=== PATIENT | female | born 1960 | race Caucasian/White ===

== ENCOUNTER 2020-09-20 12:01 | Outpatient (REF) | payer MEDICARE, MEDICAID, SELFPAY ==
[2020-09-20 12:39] LABS: Hematocrit 41.7 % (37-47); Hemoglobin 13.3 g/dl (12.0-16.0); Mean Corpuscular HGB Conc 31.9 g/dl (31.0-35.0); Mean Corpuscular Hemoglobin 31.2 pg (27.0-33.0); Mean Corpuscular Volume 97.9 fL (80-98); Mean Platelet Volume 10.2 fL (9.4-12.3); Platelet Count 239 X10*3/uL (160-400); Red Blood Count 4.26 X10*6/uL (4.20-5.50); Red Cell Distribution Width 13.2 % (11.0-16.0); White Blood Count 5.4 X10*3/uL (4.8-10.8)
[2020-09-20 13:27] LABS: Alanine Aminotransferase 27 U/L (0-31); Albumin Level 4.1 g/dL (3.5-5.0); Alkaline Phosphatase 128 U/L (39-117); Anion Gap 12 (12-20); Aspartate Amino Transferase 21 U/L (5-31); Bilirubin Total 0.3 mg/dL (0.0-1.0); Blood Urea Nitrogen 14 mg/dL (9-16); Calcium 9.2 mg/dL (8.4-10.2); Carbon Dioxide 24 mmol/L (22-29); Chloride 109 mmol/L (96-108); Estimated Glomerular Filt Rate > 60; Glucose Random 179 mg/dL (60-115); Iron 70 mcg/dL (30-160); Percent Iron Saturation 27 % (15-50); Potassium 4.5 mmol/L (3.3-5.1); Sodium 140 mmol/L (135-145); Total Iron Binding Capacity 264 mcg/dL (228-428); Unsaturated Iron Binding 194 ug/dL
[2020-09-20 13:47] LABS: Erythrocyte Sedimentation Rate 39 MM/HR (0-20)
[2020-09-20 13:48] LABS: Ferritin 136 ng/mL (10-250); Thyroid Stimulating Hormone 0.63 uIU/mL (0.32-4.0)
== END 2020-09-20 12:02 | disposition home or self-care (01) ==
LOC: HO.MANLDS 12:01
PROVIDERS: Visit Provider Internal Medicine
DX: N63.11 Unspecified lump in the right breast, upper outer quadrant (principal)
CPT/HCPCS: 36415; 80053; 82728; 83540; 84443; 85027; 85652

== ENCOUNTER 2020-09-22 10:39 | Outpatient (REF) | payer MEDICARE, MEDICAID, SELFPAY ==
[2020-09-22 13:36] LABS: Estimated Average Glucose 126 mg/dL
== END 2020-09-22 10:40 | disposition home or self-care (01) ==
LOC: HO.MANLDS 10:39
PROVIDERS: PCP Internal Medicine; Visit Provider Internal Medicine
DX: R73.01 Impaired fasting glucose (principal)
CPT/HCPCS: 36415; 83036

== ENCOUNTER 2021-01-03 11:22 | Outpatient (REF) | payer MEDICARE, MEDICAID, SELFPAY ==
[2021-01-03 14:12] LABS: Estimated Average Glucose 128 mg/dL; Hemoglobin A1c % 6.1 %
[2021-01-03 15:02] LABS: Alanine Aminotransferase 24 U/L (0-31); Albumin Level 4.4 g/dL (3.5-5.0); Alkaline Phosphatase 122 U/L (39-117); Anion Gap 15 (12-20); Aspartate Amino Transferase 18 U/L (5-31); Bilirubin Total 0.2 mg/dL (0.0-1.0); Blood Urea Nitrogen 13 mg/dL (9-16); Calcium 9.2 mg/dL (8.4-10.2); Carbon Dioxide 22 mmol/L (22-29); Chloride 108 mmol/L (96-108); Estimated Glomerular Filt Rate > 60; Glucose Random 154 mg/dL (60-115); Potassium 4.5 mmol/L (3.3-5.1); Sodium 140 mmol/L (135-145); Total Protein 7.5 g/dL (6.5-8.0)
== END 2021-01-03 11:23 | disposition home or self-care (01) ==
LOC: HO.MANLDS 11:22
PROVIDERS: PCP Internal Medicine; Visit Provider Internal Medicine
DX: R73.01 Impaired fasting glucose (principal)
CPT/HCPCS: 36415; 80053; 83036

== ENCOUNTER 2022-01-23 14:22 | Outpatient (REF) | payer MEDICARE, MEDICAID, SELFPAY ==
[2022-01-23 17:37] LABS: MANUAL DIFF FLAG NO
[2022-01-23 17:44] LABS: Basophils Percent Auto 0.4 % (0-2); Eosinophils Absolute Auto 0.1 X10*3/uL (0.0-0.4); Eosinophils Percent Auto 0.8 % (0-4); Hematocrit 43.3 % (37.0-47.0); Hemoglobin 13.7 g/dl (12.0-16.0); Imm Gran Abs Auto 0.02 X10*3/uL (0.00-0.03); Imm Gran Pct Auto 0.3 % (0.0-0.4); Lymphocytes Absolute Auto 2.5 X10*3/uL (1.2-4.9); Mean Corpuscular HGB Conc 31.6 g/dl (31.0-35.0); Mean Corpuscular Hemoglobin 30.4 pg (27.0-33.0); Mean Corpuscular Volume 96.2 fL (80.0-98.0); Mean Platelet Volume 10.7 fL (9.4-12.3); Monocytes Absolute Auto 0.5 X10*3/uL (0.1-1.2); Monocytes Percent Auto 6.6 % (2-11); Neutrophils Absolute Auto 4.4 x10*3/uL (2.0-8.3); Neutrophils Percent Auto 58.9 % (45-73); Platelet Count 256 X10*3/uL (160-400); Red Cell Distribution Width 13.6 % (11.0-16.0); White Blood Count 7.4 X10*3/uL (4.8-10.8)
[2022-01-23 17:48] LABS: Estimated Average Glucose 134 mg/dL; Hemoglobin A1c % 6.3 %
[2022-01-23 17:53] LABS: Alanine Aminotransferase 27 U/L (0-31); Albumin Level 4.3 g/dL (3.5-5.0); Alkaline Phosphatase 105 U/L (39-117); Anion Gap 15 (12-20); Aspartate Amino Transferase 26 U/L (5-31); Bilirubin Total 0.2 mg/dL (0.0-1.0); Blood Urea Nitrogen 15 mg/dL (9-16); Calcium 9.2 mg/dL (8.4-10.2); Carbon Dioxide 24 mmol/L (22-29); Chloride 105 mmol/L (96-108); Cholesterol 192 mg/dL; Estimated Glomerular Filt Rate > 60; Glucose Random 90 mg/dL (60-115); HDL Cholesterol 50 mg/dL; LDL Cholesterol Calculated 96 mg/dl; Potassium 4.1 mmol/L (3.3-5.1); Sodium 140 mmol/L (135-145); Total Protein 7.3 g/dL (6.5-8.0); Triglycerides 230 mg/dL
[2022-01-23 18:19] LABS: Vitamin B12 1615 pg/mL (200-900)
== END 2022-01-23 14:23 | disposition home or self-care (01) ==
LOC: HO.MANLDS 14:22
PROVIDERS: Visit Provider Internal Medicine
DX: Z00.01 Encounter for general adult medical examination with abnormal findings (principal); E78.00 Pure hypercholesterolemia, unspecified; R73.01 Impaired fasting glucose
CPT/HCPCS: 36415; 80053; 80061; 82306; 82607; 83036; 84443; 85025

== ENCOUNTER 2023-08-29 08:17 | Outpatient (REF) | payer MEDICARE, MEDICAID, SELFPAY ==
[2023-08-29 13:19] LABS: MANUAL DIFF FLAG NO
[2023-08-29 13:24] LABS: Basophils Percent Auto 0.7 % (0-2); Eosinophils Absolute Auto 0.1 X10*3/uL (0.0-0.4); Eosinophils Percent Auto 2.6 % (0-4); Hematocrit 42.2 % (37.0-47.0); Hemoglobin 13.4 g/dl (12.0-16.0); Imm Gran Abs Auto 0.02 X10*3/uL (0.00-0.03); Imm Gran Pct Auto 0.4 % (0.0-0.4); Lymphocytes Absolute Auto 1.8 X10*3/uL (1.2-4.9); Lymphocytes Percent Auto 33.7 % (20-40); Mean Corpuscular HGB Conc 31.8 g/dl (31.0-35.0); Mean Corpuscular Hemoglobin 31.2 pg (27.0-33.0); Mean Corpuscular Volume 98.4 fL (80.0-98.0); Mean Platelet Volume 10.9 fL (9.4-12.3); Monocytes Absolute Auto 0.6 X10*3/uL (0.1-1.2); Monocytes Percent Auto 10.4 % (2-11); Neutrophils Absolute Auto 2.8 x10*3/uL (2.0-8.3); Neutrophils Percent Auto 52.2 % (45-73); Platelet Count 245 X10*3/uL (160-400); Red Blood Count 4.29 X10*6/uL (4.20-5.50); Red Cell Distribution Width 13.2 % (11.0-16.0); White Blood Count 5.4 X10*3/uL (4.8-10.8)
[2023-08-29 13:45] LABS: Alanine Aminotransferase 19 U/L (0-31); Albumin Level 3.8 g/dL (3.5-5.0); Alkaline Phosphatase 86 U/L (39-117); Anion Gap 15 (12-20); Aspartate Amino Transferase 26 U/L (5-31); Bilirubin Total 0.1 mg/dL (0.0-1.0); Blood Urea Nitrogen 16 mg/dL (9-16); Calcium 9.1 mg/dL (8.4-10.2); Carbon Dioxide 22 mmol/L (22-29); Chloride 107 mmol/L (96-108); Cholesterol 174 mg/dL (<200); Estimated Glomerular Filt Rate > 60; Glucose Random 170 mg/dL (60-115); HDL Cholesterol 44 mg/dL (>40); LDL Cholesterol Calculated 77 mg/dL (<100); Sodium 140 mmol/L (135-145); Total Protein 6.8 g/dL (6.5-8.0); Triglycerides 266 mg/dL (<150)
== END 2023-08-29 08:18 | disposition home or self-care (01) ==
LOC: HO.MANLDS 08:17
PROVIDERS: Visit Provider Internal Medicine
DX: Z00.01 Encounter for general adult medical examination with abnormal findings (principal); Z13.6 Encounter for screening for cardiovascular disorders; Z12.11 Encounter for screening for malignant neoplasm of colon
CPT/HCPCS: 36415; 80053; 80061; 85025

== ENCOUNTER 2023-09-09 | Outpatient (REF) | payer MEDICARE, MEDICAID, SELFPAY ==
[2023-09-10 13:41] LABS: OBS Int Ctl Valid YES; OBS1 NEGATIVE (NEGATIVE); OBS2 NEGATIVE (NEGATIVE); OBS3 NEGATIVE (NEGATIVE)
== END 2023-09-09 00:01 | disposition home or self-care (01) ==
LOC: HO.LNP
PROVIDERS: Visit Provider Internal Medicine
DX: Z12.11 Encounter for screening for malignant neoplasm of colon (principal)
CPT/HCPCS: 82270

== ENCOUNTER 2024-06-11 11:36 | Outpatient (REF) | payer MEDICARE, MEDICAID, SELFPAY ==
[2024-06-11 13:51] LABS: Estimated Average Glucose 126 mg/dL; Hemoglobin A1C 147.3388 umol/L; Total Hemoglobin (HGBA1C) 3489.7383 umol/L
--- OUTSIDE RECORDS SUMMARY | 2024-06-11 14:06 | XMS_ITS | Continuity of Care Document ---
Author Organization [place] - [facility], [facility] Address [address] [place] [address] Assessment Encounter Date Assessment Date Assessment LastModified by Organization Details LastModified Time 06/11/2024 06/11/2024 [id number] [place] [id number] (HEEL [employer]) MDM HIGH MUST MEET 2 OUT OF 3 ELEMENTS: PROBLEMS, DATA OR RISK ELEMENT 1: PROBLEMS 1 OR MORE CHRONIC ILLNESS W/SEVERE EXACERBATION, PROGRESSION MAY REQUIRE HOSPITAL LEVEL CARE OR 1 ACUTE OR CHRONIC ILLNESS OR INJURY THAT POSES A THREAT TO LIFE OR BODILY FUNCTION ELEMENT 2: DATA: MUST MEET 2 OF 3 CATEGORIES CATEGORY 1 REVIEW OF PRIOR EXTERNAL NOTES REVIEW OF THE RESULTS ORDERING OF EACH TEST ASSESSMENT REQUIRING INDEPENDENT HISTORIAN(S) CATEGORY 2: INDEPENDENT INTERPRETATION OF TESTS BY ANOTHER PROVIDER/SPECIALI ST CATEGORY 3: DISCUSSION OF MGT OR TEST INTERPRETATION W/EXTERNAL PHYSICIAN/SPECIAL IST ELEMENT 3: RISK HIGH RISK OF MORBIDITY FROM ADDITIONAL DIAGNOSTIC TESTING OR TREATMENT PROVIDER MUST THOROUGHLY DOCUMENT EACH ELEMENT THAT IS COVERED The patient presented to their appointment today for multiple concerns requiring moderate to high-level decision making and took over 40-45 minutes for an adequate and appropriate history, exam, assessment and treatment plan. This appointment was done with an established patient. Not available 06/11/2024 11:16:07 Plan of Treatment Reminders Order Date Submit Date Provider Last Modified By Organization Details Last Modified Time Details Appointments FOLLOW UP 15 2024 10:45A M DR KEITH Not available Not available Not available FOLLOW UP 2024 11:15A M DR KETIH Not available Not available Not available Lab HbA1c (hemoglob in A1c), blood 2024 03 025 [facility], [address] [place] [address], [place], [address], 06/11/2024 11:30:28 Referral None recorded. Procedures None recorded. Surgeries None recorded. Imaging None recorded. Medication Orders Mounjaro 2.5 mg/0.5 mL subcutane ous pen injector 2024 025 [id number], [address], [place], [phone], 06/11/2024 11:21:41 Patient TargetsNo targets recorded. Patient Instructions Encounter Date Encounter Id Patient Instructions Last Modified By Organization Details Last Modified Time 06/11/2024 [id number] pulse oximetry* Not available 06/11/2024 11:21:30 chronic obstructive pulmonary disease (COPD): care instructions Not available 06/11/2024 11:21:30 learning about copd and how to prevent lung infections Not available 06/11/2024 11:21:30 Rheumatoid Arthritis (RA): Care Instructions Not available 06/11/2024 11:21:30 Reason for Referral None Reported. Results Created Date Observation Date Name Description Value Unit Range Abnormal Flag Note LastModifiedBy Organization Detail LastModifiedTime 06/12/1906/11/2024 pulse oxime try* Result 95 Not Available [facility] [address], [place], [address], 06/11/2024 08:22:51 Result Notes None recorded. Problems Name Problem SNOMED Code Status Onset Date Resolution Date Notes Provider Name and Address Organization Details Recorded Time Pulmonar y emphysem a 22657374 Active 2020 Genesis galeas [facility] 5 08:22:25 COVID-19 559299435 Active 2021 Genesis galeas [facility] 5 08:22:39 Degenera tion of lumbar interver tebral disc 59490674 Active 2021 Genesis galeas [facility] 5 08:22:25 Impetigo 46980970 Active 2021 Genesis galeas [facility] 5 08:22:25 Seborrhe ic dermatit is of scalp 177688525 Active 2021 Genesis Mcclelland null, [facility] 5 08:22:39 Anxiety 14022050 Active 2022 Genesis Mcclelland null, [facility] 5 08:22:25 Right flank pain 378105522 Active 2022 Genesis Mcclelland null, [facility] 5 08:22:39 Dyspnea 309832017 Active 2022 Genesis Mcclelland null, [facility] 5 08:22:25 Thoracic back pain 727354090 Active 2022 Genesis Mcclelland null, [facility] 5 08:22:25 Degenera tion of thoracic interver tebral disc 12547087 Active 2022 Genesis Mcclelland null, [facility] 5 08:22:25 Insomnia 218975545 Active 2022 Genesis Mcclelland null, [facility] 5 08:22:25 Acute exacerba tion of chronic obstruct anjelica pulmonar y disease 162954395 Active 2022 Genesis Mcclelland null, [facility] 5 08:22:25 Asthma 254903051 Active 2022 Genesis Mcclelland null, [facility] 5 08:22:25 Hemorrho ids 53835248 Active 2022 Genesis Mcclelland null, [facility] 5 08:22:25 Emphysem atous bronchit is 470743393 Active 2022 Genesis Mcclelland null, [facility] 5 08:22:25 Depressi ve disorder 92841044 Active 2022 Genesis Mcclelland null, [facility] 5 08:22:25 Dyspnea on exertion 36381229 Active 2023 Genesis Mcclelland null, [facility] 5 08:22:25 Fibrosis of lung 14521407 Active 2023 Genesis Drew null, [facility] 5 08:22:25 Nail changes 193851371 Active 2023 Genesisalma delia Mcclelland null, [facility] 5 08:22:39 Hashimot o thyroidi tis 75319733 Active 2023 Genesisalma delia Mcclelland null, [facility] 5 08:22:25 Chronic obstruct anjelica pulmonar y disease 26005182 Active 2023 Genesisalma delia Mcclelland null, [facility] 5 08:22:25 Pneumoni a 426853310 Active 2023 Genesisalma delia Mcclelland null, [facility] 5 08:22:39 Ground glass opacity Active 2023 Genesisalma delia Mcclelland null, [facility] 5 08:22:39 Pain of right knee joint 71019334712 4100 Active 2023 Genesisalma delia Mcclelland null, [facility] 5 08:22:39 Sleep apnea 94301452 Active 2023 Genesisalma delia Mcclelland null, [facility] 5 08:22:25 Bilatera l hip joint pain 83468551717 078030 Active 2023 Genesis Mcclelland null, [facility] 5 08:22:25 Osteoart hritis of hip 020078635 Active 2023 Genesisalma delia Mcclelland null, [facility] 5 08:22:25 Weakness of right lower limb Active 2023 Genesisalma delia Mcclelland null, [facility] 5 08:22:25 Type 2 diabetes mellitus 24667947 Active 2023 Jj Keith, DO [address] [place] [address], [address], [facility] 4 22:07:10 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 [facility] 5 08:22:25 Chronic hypovent ilation 36897799 Active 2024 [facility] 5 08:22:25 Hypercho lesterol emia 87601000 Active 2017 Genesis galeas [facility] 5 08:22:25 Degenera tion of interver tebral disc 78774109 Active 2017 [facility] 5 08:22:26 Cramp in lower limb 012748374 Active 2017 [facility] 5 08:22:39 Rheumato id arthriti s 39997475 Active 2017 [facility] 5 08:22:25 Viral hepatiti s C 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 n [facility] 5 08:22:25 Chronic antral gastriti s 29295785 Active 2017 [facility] 5 08:22:26 Fibromya lgia 469732360 Active 2017 [facility] 5 08:22:25 Osteoart hritis 908466416 Active 2017 [facility] 5 08:22:25 Chronic constipa tion 942782756 Active 2017 [facility] 5 08:22:25 Chiari malforma tion 714478488 Active 2017 Genesis galeas [facility] 5 08:22:25 Costal chondrit is 84939654 Active 2017 Genesis galeas [facility] 5 08:22:39 Occipita l headache 392361 Active 2017 Not Available [facility] 12:47:48 Notes:Some problems listed i n Documents: #[id number], #[id number], #[id number], #[id number], #[id number] could not be added to this patient's chart. Please review these documents and add these problems to the patient's chart manually as needed. Problem Notes None recorded. Procedures Surgical History Date Name Laterality Status Provider Name and Address Organization Details Recorded Time 024 Corticosteroid Injection completed Jah Aquino [facility] 11/09/2023 13:46:54 Corticosteroid Injection completed Jj Keith, DO [address] [place] [address], [place], [address], [facility] 10/29/2023 15:29:39 Imaging Results None recorded. Procedure Notes None recorded. Medical Equipment None Reported. Allergies Allergen ID Allergen Name Allergen Category Reaction Reaction Severity Criticality Documentation Date Start Date Code Code System Note Provider Name and Address Organization Details Recorded Time 1900 Indocin medicatio n Not available Not available Not available 10/23/2017 08129 5 RxNorm Maria T Byrnes [facility] 8 09:22:03 1901 Soma medicatio n Not available Not available Not available 10/23/2017 00113 2 RxNorm Maria T galeas [facility] 8 09:22:07 1902 doxycycli ne Not available Not available Not available Not available 10/23/2017 3640 RxNorm Maria T galeas [facility] 8 09:22:11 1903 pregabali n medicatio n Not available Not available Not available 10/23/2017 33264 2 RxNorm Maria T galeas [facility] 8 09:22:20 Medications Name Sig Start Date Stop Date Status Note LastModified by Organization Details LastModified Time celecoxib 200 mg capsule TAKE 1 CAPSULE BY MOUTH TWICE DAILY DIRECTED FOR OSTEOARTH RITIS active Not Available Not Available No t Available cyclobenzap rine 10 mg tablet TAKE 1 TABLET BY MOUTH THREE TIMES DAILY EVERY 8 HOURS active Not Available Not Available No t Available amoxicillin 500 mg capsule TAKE 4 CAPSULES BY MOUTH BEFORE INJECTION FOR 1 HOUR 06/11 completed Not Available Not Available Not Available fentanyl 50 mcg/hr transdermal patch APPLY 1 PATCH TOPICALLY TO THE SKIN EVERY 72 HOURS 2024 active Not Available Not Available Not Avai lable pilocarpine 5 mg tablet TAKE 2 TABLETS BY MOUTH EVERY MORNING AND 1 TABLET IN THE AFTERNOON AND 1 IN THE EVENING active Not Available Not Available No t Available prednisone 10 mg tablet TAKE 4 TABLETS BY MOUTH DAILY FOR 2 DAYS, 3 TABLETS DAILY FOR 2 DAYS, 2 TABLETS DAILY FOR 2 DAYS, THEN 1 TABLET DAILY FOR 2 DAYS 08/07 completed Not Available Not Available Not Available clindamycin HCl 300 mg capsule TAKE 1 CAPSULE BY MOUTH EVERY 6 HOURS 11/22 completed Not Available Not Available Not Available amitriptyli ne 150 mg tablet TAKE 1 TABLET BY MOUTH EVERY NIGHT AT BEDTIME active Not Available Not Available No t Available azithromyci n 250 mg tablet TAKE 2 TABLETS (500 MG) BY ORAL ROUTE ONCE DAILY FOR 1 DAY THEN 1 TABLET (250 MG) BY ORAL ROUTE ONCE DAILY FOR 4 DAYS 03/21 completed Not Available Not Available Not Available amitriptyli ne 75 mg tablet 02/12 completed Not Available Not Available Not Available sumatriptan 100 mg tablet Take 1 tablet by oral route as needed for 30 days. active Not Available Not Available No t Available prednisone 5 mg tablet 09/04 completed Not Available Not Available Not Available glipizide ER 5 mg tablet, extended release 24 hr TAKE 1 TABLET BY MOUTH EVERY DAY active Not Available Not Available No t Available Accu-Chek Softclix Lancets USE TO TEST BLOOD GLUCOSE ONCE DAILY active Not Available Not Available No t Available sulfamethox azole 800 mg-trimetho prim 160 mg tablet TAKE 1 TABLET BY MOUTH EVERY 12 HOURS FOR 7 DAYS 05/26 completed Not Available Not Available Not Available peg-electro lyte solution 420 gram oral solution TAKE DIRECTED BY MD OFFICE FOR PROCEDURE PREP 08/07 completed Not Available Not Available Not Available tramadol 50 mg tablet TAKE 1 TABLET BY MOUTH EVERY 6 HOURS NEEDED FOR BREAKTHRO UGH PAIN active Not Available Not Available No t Available acetaminoph en 500 mg tablet TAKE 1 TABLET BY MOUTH EVERY 6 HOURS NEEDED active Not Available Not Available No t Available amoxicillin 500 mg tablet active Not Available Not Available Not Available simvastatin 40 mg tablet TAKE 1 TABLET BY MOUTH ONCE DAILY 07/31 completed Not Available Not Available Not Available amiloride 5 mg tablet TAKE 1 TABLET BY MOUTH EVERY DAY DIRECTED active Not Available Not Available No t Available amitriptyli ne 25 mg tablet 02/12 completed Not Available Not Available Not Available lorazepam 0.5 mg tablet TAKE 1 TABLET BY MOUTH EVERY 8 HOURS NEEDED active Not Available Not Available No t Available fentanyl 100 mcg/hr transdermal patch APPLY 1 PATCH TOPICALLY TO THE SKIN EVERY 72 HOURS active Not Available Not Available No t Available lorazepam 2 mg tablet TAKE 1 TABLET BY MOUTH DIRECTED 1.5 HOURS PRIOR TO INJECTION 06/11 completed Not Available Not Available Not Available baclofen 10 mg tablet TAKE 1 TABLET BY MOUTH THREE TIMES DAILY NEEDED 2020 active Not Available Not Available Not Avai lable simvastatin 20 mg tablet TAKE 1 TABLET BY MOUTH EVERY DAY active Not Available Not Available No t Available oseltamivir 75 mg capsule Take 1 capsule twice a day by oral route for 5 days. 06/11 completed Not Available Not Available Not Available levothyroxi ne 150 mcg tablet 07/08 completed Not Available Not Available Not Available gabapentin 300 mg capsule TAKE ONE CAPSULE BY MOUTH EVERY NIGHT AT BEDTIME active Not Available Not Available No t Available omeprazole 20 mg capsule,del ayed release TAKE 1 CAPSULE BY MOUTH TWICE A DAY active Not Available Not Available No t Available bisacodyl 5 mg tablet,curt yed release TAKE 4 TABLETS BY MOUTH EVERY DAY FOR 1 DAY 06/11 completed Not Available Not Available Not Available gabapentin 100 mg capsule TAKE 1 CAPSULE BY MOUTH DAILY IN THE MORNING AND IN THE AFTERNOON active Not Available Not Available No t Available lorazepam 1 mg tablet TAKE 1/2 TABLET BY MOUTH THREE TIMES DAILY NEEDED 05/26 completed Not Available Not Available Not Available levofloxaci n 500 mg tablet TAKE 1 TABLET BY MOUTH EVERY 24 HOURS active Not Available Not Available No t Available zolpidem 10 mg tablet TAKE 1 TABLET BY MOUTH EVERY DAY FOR 7 DAYS NEEDED active Not Available Not Available No t Available methylpredn isolone 4 mg tablets in a dose pack FOLLOW PACKAGE DIRECTION S 08/07 completed Not Available Not Available Not Available albuterol sulfate HFA 90 mcg/actuati on aerosol inhaler INHALE 2 PUFFS BY MOUTH EVERY 4 HOURS active Not Available Not Available No t Available clobetasol 0.05 % scalp solution APPLY TOPICALLY TO THE SCALP TWICE DAILY IN THE MORNING AND IN THE EVENING active Not Available Not Available No t Available topiramate 100 mg tablet TAKE 1 TABLET BY MOUTH TWICE DAILY active Not Available Not Available No t Available betamethaso ne dipropionat e 0.05 % lotion APPLY FEW DROPS TOPICALLY TO THE AFFECTED AREA EVERY MORNING AND EVERY EVENING. RUB IN GENTLY AND COMPLETEL Y active Not Available Not Available No t Available amitriptyli ne 100 mg tablet TAKE 1 TABLET BY MOUTH ONCE DAILY 07/08 completed Not Available Not Available Not Available rosuvastati n 5 mg tablet 11/09 completed Not Available Not Available Not Available Alcohol Prep Pads USE TO CHECK BLOOD SUGAR LEVEL ONCE DAILY active Not Available Not Available No t Available duloxetine 30 mg capsule,del ayed release TAKE 1 CAPSULE BY MOUTH EVERY DAY active Not Available Not Available No t Available biotin 1 mg tablet Take 1 tablet every day by oral route. active Not Available Not Available No t Available Boostrix Tdap 2.5 Lf unit-8 mcg-5 Lf/0.5 mL intramuscul ar syringe 02/08 completed Not Available Not Available Not Available melatonin active Not Available Not Francie ilable Not Available Vitamin C 500mg daily active Not Available Not Available No t Available multivitami n active Not Available Not Available Not Available Calcium 600 + D(3) once a day active Not Available Not Available No t Available Symbicort 80 mcg-4.5 mcg/actuati on HFA aerosol inhaler INHALE 2 PUFFS BY MOUTH TWICE A DAY 09/20 completed Not Available Not Available Not Available diclofenac 1 % topical gel APPLY 2 GRAMS TOPICALLY TO THE AFFECTED AREA FOUR TIMES DAILY active Not Available Not Available No t Available Chantix Continuing Month Box 1 mg tablet take 1 tablet by mouth twice a day 07/08 completed Not Available Not Available Not Available Chantix Starting Month Box 0.5 mg (11)-1 mg (42) tablets in dose pack take as directed ON PACKAGE active Not Available Not Available No t Available Anoro Ellipta 62.5 mcg-25 mcg/actuati on powder for inhalation INHALE 1 PUFF BY MOUTH EVERY DAY active Not Available Not Available No t Available OxyContin 15 mg tablet,carol h resistant,e xtended release TAKE 1 TABLET (15 MG TOTAL) BY MOUTH EVERY 12 (TWELVE) HOURS. 07/08 completed Not Available Not Available Not Available OxyContin 30 mg tablet,carol h resistant,e xtended release Take 1 tablet twice a day by oral route for 28 days. 05/07 completed Not Available Not Available Not Available Narcan 4 mg/actuatio n nasal spray CALL 911. SPR CONTENTS OF ONE SPRAYER (0.1ML) INTO ONE NOSTRIL. REPEAT IN 2-3 MIN IF SYMPTOMS OF OPIOID EMERGENCY PERSIST, ALTERNATE NOSTRIL active Not Available Not Available No t Available Accu-Chek Guide test strips USE TO CHECK BLOOD SUGAR LEVEL ONCE DAILY. active Not Available Not Available No t Available Accu-Chek Guide Glucose Meter USE TO CHECK BLOOD GLUCOSE ONCE DAILY active Not Available Not Available No t Available Trelegy Ellipta 100 mcg-62.5 mcg-25 mcg powder for inhalation INHALE 1 PUFF BY MOUTH EVERY DAY DIRECTED 2023 active Not Available Not Available Not Avai lable Shingrix (PF) 50 mcg/0.5 mL intramuscul ar suspension, kit 02/12 completed Not Available Not Available Not Available Mounjaro 2.5 mg/0.5 mL subcutaneou s pen injector Inject 0.5 mL every week by subcutane ous route for 30 days. 2024 active Not Available Not Available Not Avai lable Vitals Date Recorded Body height Body mass index (BMI) Body weight Heart rate Oxygen saturation Oxygen saturation in Arterial blood by Pulse oximetry Systolic blood pressure Diastolic blood pressure Provider Name and Address Organization Details Last Updated DateTime 5 172.72 cm 41 kg/m2 979034. 86 g 88 /min 95 % 95 % 122 mm[Hg] 78 mm[Hg] [facility] 5 10:55:33 Social History Question Answer Notes LastModified by Organizat ion Details LastModified Time Tobacco Smoking Status Former Smoker Not Available [facility] 02/10/2020 03:36:24 What Is Your Level Of Alcohol Consumption? Occasional [id number] Information not available 02/10/2020 What Is Your Level Of Caffeine Consumption? Heavy 4 Cups Coffee Per Day [id number] Information not available 02/10/2020 What Was The Date Of Your Most Recent Tobacco Screening? 06/11/2024 [email or web address] Information not available 06/11/2024 Do You Or Have You Ever Used Any Other Forms Of Tobacco Or Nicotine? No Information not available 01/23/2022 Sex: Unknown Functional Status Question Answer Note LastModified by Organization D etails LastModified Time What is your exercise level? None [id number] Information not available 02/10/2020 Mental Status None recorded. Family History Nothing Reported. Medical History No medical history recorded. Gynecological HistoryNo gynecological history recorded. Obstetrics History GPAL:G 0 P 0 0 0 0 Immunizations Vaccine Type Date Status Note Provider Nam e and Address Organization Details Recorded Time zoster, unspecified formulation 1 completed Jj Keith DO [address] [place] [address], [phone], [facility] 11/27/2020 17:46:12 Influenza, split virus, quadrivalent, preservative 1 completed Jj Keith DO [address] [place] [address], [phone], [facility] 11/27/2020 17:46:22 COVID-19, mRNA, LNP-S, PF, 30 mcg/0.3 mL dose 1 [facility] 12/22/2020 09:39:41 Tdap 1 completed Colette galeas [facility] 01/07/2021 08:20:47 zoster recombinant 1 completed Maria T galeas [facility] 01/28/2021 13:57:41 COVID-19, mRNA, LNP-S, PF, 30 mcg/0.3 mL dose 1 completed Jj Keith DO [address] [place] [address], [phone], [facility] 03/10/2021 14:32:15 Influenza, split virus, quadrivalent, preservative 8 completed Jj Keith DO [address] [place] [address], [phone], [facility] 01/12/2018 15:24:16 COVID-19, mRNA, LNP-S, PF, 30 mcg/0.3 mL dose 2 completed Kelly Hackett [facility] 08/05/2021 08:33:30 Influenza, split virus, quadrivalent, preservative 2 completed Maria T galeas [facility] 01/17/2022 08:26:21 Tdap 8 completed Not Available [facility] 05/10/2019 02:14:52 zoster live 8 completed Maria T galeas [facility] 12/18/2018 11:18:50 zoster live 8 completed Maria T galeas [facility] 12/18/2018 11:18:59 Influenza, split virus, quadrivalent, preservative 0 completed Colette galeas [facility] 01/06/2020 13:41:20 Tdap 0 [facility] 01/06/2020 13:41:32 COVID-19, mRNA, LNP-S, PF, 30 mcg/0.3 mL dose 1 completed Jj Keith DO [address] [place] [address], [phone], [facility] 07/31/2020 19:33:42 Past Encounters Encounter ID Performer Location Encounter Start Date Encounter Closed Date Diagnosis/Indication Diagnosis SNOMED-CT Code Diagnosis ICD10 Code Diagnosis Note [id number] Jj Keith DO [facility] [address] [facility] [address] 06/11/2024 10:40:55 06/11/2024 12:13:26 Asthma 748538357 J45.909 has been stable Type 2 tim betes mellitus 42828169 E11.9 new onset of dm long discussion and need for weight loss told her she needs to change the way she is eatingwe are going to get her a Glp 1 inj Central al veolar hypoventilation syndrome 27844406 G47.39 noted obesity hypovent syndrome a bedtime O2 sats drop to 70's Degenerati on of lumbar intervertebral disc 40407861 M51.369 going for caudal epidural Depression screening 171 680505 Z13.31 neg Chronic ob structive pulmonary disease 97842904 J44.9 awaiting pft final report expect status to have worsened Bilateral hip joint pain 8634966047 6188695 M25.551 noted and her wgt is the primary culprit Rheumatoid arthritis 698 83576 M06.89 followed per rheumatelena cory is asking for medication for breakthrou gh pain even though she is getting 150mcg of xpxdxaut5m will discuss this with marissa at [facility] ortho(?) Health Concerns Section Related Observation LastModified by Organization Detai ls LastModified Time None Recorded Concern Status LastModified by Organization Details LastModified Time None Recorded Payers Encounter Date Sequence Insurance Name Policy Number Policy Bruce Covered Member ID Bruce Member ID Guarantor Name 06/11/2024 2 [place] [facility] Amberly [place] [id number] Amberly [place] 06/11/2024 1 [facility] (MEDICARE REPLACEMENT/A DVANTAGE - HMO) Amberly Glasgow [id number] Amberly Glasgow Notes Date Note Type Note Provider Name a ut Address Organization Details Recorded Time 5 text/html Care Management - DiabetesReported bypatient.Prognosis:e xpected outcome: stabilize; prognosis: guarded Self Care:hemoglobin A1C goal: <7.5; hemoglobin A1C levels have been: 7-8 underwent resp eval oxim went down 92% but pt saw 90 this was after she was walking for 5 min relates is still having exertional dyspneausing the trelegy daily and always using the albuterol Jj Keith, DO [address] [facility], [place], [address], [facility] (formerly [facility] 06/11/2024 11:24:57 OBGyn Episode No OBEpisode recorded.
--- OUTSIDE RECORDS SUMMARY | 2024-06-11 14:06 | XMS_ITS | Data Portability ---
Author Organization [facility] Service Address [address] [place] [address] Assessment Encounter Date Assessment Date Assessment LastModified by Organization Details LastModified Time 10/29/2023 10/29/2023 [id number] [place] [id number] (STATION MASTER) : MDM LOW MUST MEET 2 OF 3 ELEMENTS: PROBLEMS, DATA OR RISK ELEMENT 1: PROBLEMS ADDRESSED (LOW): 2 OR MORE SELF-LIMITED OR MINOR PROBLEMS OR 1 STABLE CHRONIC ILLNESS OR 1 ACUTE UNCOMPLICATED ILLNESS OR INJURY ELEMENT 2: DATA TO BE REVISED AND ANALYZED (LOW) MUST MEET 1 OF 2 CATEGORIES: CATEGORY 1. REVIEW OF PRIOR EXTERNAL NOTES/RESULTS, ORDERING OF TEST(S) CATEGORY 2. ASSESSMENT REQUIRING INDEPENDENT HISTORIAN(S) INCLUDE WHO THE HISTORIAN IS AND RELATION TO PT AND WHY PT IS UNABLE TO GIVE COMPLETE HISTORY ELEMENT 3: RISK (LOW) RISK OF COMPLICATIONS AND/OR MORBIDITY OR MORTALITY OF PATIENT MANAGEMENT PROVIDER MUST THOROUGHLY DOCUMENT ALL OF THE ELEMENTS COVERED Not available 10/29/2023 15:30:05 11/09/2023 11/09/2023 [id number] [place] [id number] (STATION MASTER) : MDM LOW MUST MEET 2 OF 3 ELEMENTS: PROBLEMS, DATA OR RISK ELEMENT 1: PROBLEMS ADDRESSED (LOW): 2 OR MORE SELF-LIMITED OR MINOR PROBLEMS OR 1 STABLE CHRONIC ILLNESS OR 1 ACUTE UNCOMPLICATED ILLNESS OR INJURY ELEMENT 2: DATA TO BE REVISED AND ANALYZED (LOW) MUST MEET 1 OF 2 CATEGORIES: CATEGORY 1. REVIEW OF PRIOR EXTERNAL NOTES/RESULTS, ORDERING OF TEST(S) CATEGORY 2. ASSESSMENT REQUIRING INDEPENDENT HISTORIAN(S) INCLUDE WHO THE HISTORIAN IS AND RELATION TO PT AND WHY PT IS UNABLE TO GIVE COMPLETE HISTORY ELEMENT 3: RISK (LOW) RISK OF COMPLICATIONS AND/OR MORBIDITY OR MORTALITY OF PATIENT MANAGEMENT PROVIDER MUST THOROUGHLY DOCUMENT ALL OF THE ELEMENTS COVERED Not available 11/09/2023 15:52:11 03/04/2024 03/04/2024 [id number] [place] [id number] (STATION MASTER) MDM MODERATE MUST MEET 2 OUT OF 3 ELEMENTS: PROBLEMS, DATA OR RISK ELEMENT 1: PROBLEMS ADDRESSED 1 OR MORE CHRONIC ILLNESS WITH EXACERBATION OR 2 OR MORE STABLE CHRONIC ILLNESSES OR 1 UNDIAGNOSED NEW PROBLEM OR 1 ACUTE ILLNESS W/SYMPTOMS OR 1 ACUTE COMPLICATED INJURY ELEMENT 2: DATA MUST MEET 1 OF 3 CATEGORIES CATEGORY 1: REVIEW OF PRIOR EXTERNAL NOTES, REVIEW OF RESULTS, ORDERING OF EACH TEST, ASSESSMENT REQUIRING INDEPENDENT HISTORIAN OR CATEGORY 2: INDEPENDENT INTERPRETATION OF TESTS BY ANOTHER PHYSICIAN OR SPECIALIST OR CATEGORY 3: DISCUSSION OF MGT OR TEST INTERPRETATION W/EXTERNAL PHYSICIAN OR SPECIALIST ELEMENT 3: RISK RISK OF COMPLICATIONS AND/OR MORBIDITY OR MORTALITY OF PATIENT MANAGEMENT PROVIDER MUST THOROUGHLY DOCUMENT EACH ELEMENT THAT IS COVERED Not available 03/04/2024 16:41:58 04/11/2024 04/11/2024 [id number] [place] [address] (STATION MASTER) MDM MODERATE MUST MEET 2 OUT OF 3 ELEMENTS: PROBLEMS, DATA OR RISK ELEMENT 1: PROBLEMS ADDRESSED 1 OR MORE CHRONIC ILLNESS WITH EXACERBATION OR 2 OR MORE STABLE CHRONIC ILLNESSES OR 1 UNDIAGNOSED NEW PROBLEM OR 1 ACUTE ILLNESS W/SYMPTOMS OR 1 ACUTE COMPLICATED INJURY ELEMENT 2: DATA MUST MEET 1 OF 3 CATEGORIES CATEGORY 1: REVIEW OF PRIOR EXTERNAL NOTES, REVIEW OF RESULTS, ORDERING OF EACH TEST, ASSESSMENT REQUIRING INDEPENDENT HISTORIAN OR CATEGORY 2: INDEPENDENT INTERPRETATION OF TESTS BY ANOTHER PHYSICIAN OR SPECIALIST OR CATEGORY 3: DISCUSSION OF MGT OR TEST INTERPRETATION W/EXTERNAL PHYSICIAN OR SPECIALIST ELEMENT 3: RISK RISK OF COMPLICATIONS AND/OR MORBIDITY OR MORTALITY OF PATIENT MANAGEMENT PROVIDER MUST THOROUGHLY DOCUMENT EACH ELEMENT THAT IS COVERED Not available 04/11/2024 11:09:47 06/11/2024 06/11/2024 [id number] [place] [id number] (STATION MASTER) MDM HIGH MUST MEET 2 OUT OF [...] available Not available Not available FOLLOW UP 15 2024 11:15A M DR KEITH Not available Not available Not available Lab HbA1c (hemoglob in A1c), blood 2024 [facility], [address] [place] [address], [address], 06/11/2024 11:30:28 CMP, serum or plasma 2023 [facility], [place], [address], 03/11/2024 13:34:51 HbA1c (hemoglob in A1c), blood 2023 024 [facility], [place], [address], 03/11/2024 13:13:49 Referral None recorded. Procedures None recorded. Surgeries None recorded. Imaging XR, lumbar spine, 2 view 2023 [facility], [address] [place], [address], 03/11/2024 09:09:34 Medication Orders Mounjaro 2.5 mg/0.5 mL subcutane ous pen injector 2024 [place] [id number], [address] [place], [place], [id number], 06/11/2024 11:21:41 glipizide ER 5 mg tablet, extended release 24 hr 2024 025 [place] [facility], [address] [place], [place], [phone], 04/11/2024 11:15:18 fentanyl 100 mcg/hr transderm al patch 2024 025 [facility]0447, [address] [place], [address], 04/11/2024 11:19:50 fentanyl 50 mcg/hr transderm al patch 2024 025 [facility]0447, [address] [place], [address], 04/11/2024 11:19:50 tramadol 50 mg tablet 2024 025 [place] [facility]013, [address] [place], [place], [id number], 04/11/2024 11:19:58 Patient TargetsNo targets recorded. Patient Instructions Encounter Date Encounter Id Patient Instructions Last Modified By Organization Details Last Modified Time 03/04/2024 [id number] prediabetes: car e instructions Not available 03/04/2024 16:42:54 04/11/2024 [id number] pulse oximetry* Not available 04/11/2024 11:20:19 learning about type 2 diabetes Not available 04/11/2024 11:15:11 type 2 diabetes: care instructions Not available 04/11/2024 11:15:11 06/11/2024 [id number] pulse oximetry* Not available 06/11/2024 11:21:30 chronic obstructive pulmonary disease (COPD): care instructions Not available 06/11/2024 11:21:30 learning about copd and how to prevent lung infections Not available 06/11/2024 11:21:30 Rheumatoid Arthritis (RA): Care Instructions Not available 06/11/2024 11:21:30 Reason for Referral None Reported. Results Created Date Observation Date Name Description Value Unit Range Abnormal Flag Note LastModifiedBy Organization Detail LastModifiedTime 04/11/19 25 04/11/2024 pulse oxime try* Result 98% RA Not Available [facility] [address] [facility] [address], [place], [address], 04/11/2024 09:08:56 06/12/19 25 06/11/2024 pulse oxime try* Result 95 Not Available [facility] [address] [facility] [address], [place], [address], 06/11/2024 08:22:51 10/02/19 24 10/02/2023 compl ete PFT w/ post [facility] hodil ator sotero metry * No observ ation record ed. [facility] ([address], [address], 10/07/2023 22:33:04 10/03/19 24 10/02/2023 compl ete PFT w/ post [facility] hodil ator sotero metry * No observ ation record ed. [facility] [address] [facility] [address], [place], [address], 10/07/2023 22:33:04 10/03/19 24 10/02/2023 compl ete PFT w/ post [facility] hodil ator sotero metry * No observ ation record ed. [facility] [address] [facility] [address], [place], [address], 10/07/2023 22:33:05 10/10/19 24 10/10/2023 XR, knee, 3 view No observ ation record ed. [email or web address] [address], [address], 10/15/2023 12:10:45 10/18/19 24 10/17/2023 XR, hip + pelvi s, bilat eral No observ ation record ed. [email or web address] [address], [place], [address], 10/19/2023 09:38:21 10/31/19 24 10/31/2023 MAMMO , diagn ostic , digit al, bilat eral No observ ation record ed. [address], [address], 11/01/2023 06:52:12 10/31/19 24 10/31/2023 US, breas t, unila teral , limit ed No observ ation record ed. [address], [address], 11/01/2023 06:51:03 03/11/20 24 03/11/2024 XR, lumba r spine , 2 view No observ ation record ed. [email or web address] [address], [address], 03/12/2024 09:08:42 Result Notes None recorded. Problems Name Problem SNOMED Code Status Onset Date Resolution Date Notes Provider Name and Address Organization Details Recorded Time Pulmonar y emphysem a 69586105 Active 2020 Genesis galeas [facility] 5 08:22:25 COVID-19 501975615 Active 2021 Genesis galeas [facility] 5 08:22:39 Degenera tion of lumbar interver tebral disc 91667073 Active 2021 Genesis galeas [facility] 5 08:22:25 Impetigo 88248514 Active 2021 Genesis galeas [facility] 5 08:22:25 Seborrhe ic dermatit is of scalp 650025078 Active 2021 Genesis galeas [facility] 5 08:22:39 Anxiety 51631672 Active 2022 Genesis galeas [facility] 5 08:22:25 Right flank pain 056383023 Active 2022 Genesis Mcclelland null, [facility] 5 08:22:39 Dyspnea 926315300 Active 2022 Genesis Mcclelland null, [facility] 5 08:22:25 Thoracic back pain 478314651 Active 2022 Genesis Mcclelland null, [facility] 5 08:22:25 Degenera tion of thoracic interver tebral disc 78920815 Active 2022 Genesis Mcclelland null, [facility] 5 08:22:25 Insomnia 045476315 Active 2022 Genesis Mcclelland null, [facility] 5 08:22:25 Acute exacerba tion of chronic obstruct anjelica pulmonar y disease 435439844 Active 2022 Genesis Mcclelland null, [facility] 5 08:22:25 Asthma 480866002 Active 2022 Genesis Mcclelland null, [facility] 5 08:22:25 Hemorrho ids 99932792 Active 2022 Genesis Mcclelland null, [facility] 5 08:22:25 Emphysem atous bronchit is 695039210 Active 2022 Genesis Mcclelland null, [facility] 5 08:22:25 Depressi ve disorder 88716218 Active 2022 Genesis Mcclelland null, [facility] 5 08:22:25 Dyspnea on exertion 92840137 Active 2023 Genesis Mcclelland null, [facility] 5 08:22:25 Fibrosis of lung 06972746 Active 2023 Genesis Mcclelland null, [facility] 5 08:22:25 Nail changes 743028426 Active 2023 Genesis Mcclelland null, [facility] 5 08:22:39 Hashimot o thyroidi tis 13610297 Active 2023 Genesis Mcclelland null, [facility] 5 08:22:25 Chronic obstruct anjelica pulmonar y disease 70515173 Active 2023 Genesis Mcclelland null, [facility] 5 08:22:25 Pneumoni a 361655619 Active 2023 Genesis Mcclelland null, [facility] 5 08:22:39 Ground glass opacity Active 2023 Genesis Mcclelland null, [facility] 5 08:22:39 Pain of right knee joint 41454747672 4100 Active 2023 Genesis Mcclelland null, [facility] 5 08:22:39 Sleep apnea 54786574 Active 2023 Genesis Mcclelland null, [facility] 5 08:22:25 Bilatera l hip joint pain 49260678254 751919 Active 2023 Genesis Mcclelland null, [facility] 5 08:22:25 Osteoart hritis of hip 851590562 Active 2023 Genesis Mcclelland null, [facility] 5 08:22:25 Weakness of right lower limb Active 2023 Genesis Mcclelland null, [facility] 5 08:22:25 Type 2 diabetes mellitus 21289269 Active 2023 Jj Keith, DO [address] [place], [address], [facility] 4 22:07:10 Central alveolar hypovent ilation syndrome 37626204 Active 2024 Genesis Mcclelland null, [facility] 5 08:22:25 Chronic hypovent ilation 41068180 Active 2024 Genesis Mcclelland null, [facility] 5 08:22:25 Hypercho lesterol emia 18892967 Active 2017 Genesisalma delia galeas [facility] 5 08:22:25 Degenera tion of interver tebral disc 43153416 [facility] 08:22:26 Cramp in lower limb 276726672 Active 2017 [facility] 08:22:39 Rheumato id arthriti s 94673031 Active 2017 [facility] 08:22:25 Viral hepatiti s C 85079723 Active 2017 treated 1997 [facility]o n [facility] 08:22:25 Chronic antral gastriti s 67637620 Active 2017 Genesisalma delia galeas [facility] 5 08:22:26 Fibromya lgia 969048948 Active 2017 [facility] 08:22:25 Osteoart hritis 565349474 Active 2017 [facility] 08:22:25 Chronic constipa tion 549637414 Active 2017 [facility] 08:22:25 Chiari malforma tion 534566657 Active 2017 [facility] galeas [facility] 5 08:22:25 Costal chondrit is 92627515 Active 2017 Genesisalma delia galeas [facility] 5 08:22:39 Occipita l headache 565672 Active 2017 Not Available [facility] 12:47:48 Notes:Some problems listed i n Documents: #[id number], #[id number], #[id number], #[id number], #[id number] could not be added to this patient's chart. Please review these documents and add these problems to the patient's chart manually as needed. Problem Notes None recorded. Procedures Surgical History Date Name Laterality Status Provider Name and Address Organization Details Recorded Time Corticosteroid Injection completed Jah Aquino [facility] 11/09/2023 13:46:54 Corticosteroid Injection completed Jj Keith, [address] [facility], [place], [address], [place] [facility] 10/29/2023 15:29:39 Imaging Results Imaging Date Name Status LastModified by Organization Details LastModified Time 10/02/2023 complete PFT w/ post bronchodilator spirometry* [facility] [place] [address] ([facility]) [address] [place] [address], [address], 10/07/2023 22:33:04 10/02/2023 complete PFT w/ post bronchodilator spirometry* completed [address] [facility] [address], [place], [address], 10/07/2023 22:33:04 10/02/2023 complete PFT w/ post bronchodilator spirometry* completed [address] [facility], [place], [address], 10/07/2023 22:33:05 10/10/2023 XR, knee, 3 view completed [email or web address] [address], [address], 10/15/2023 12:10:45 10/17/2023 XR, hip + pelvis, bilateral completed [email or web address] [address], [address], 10/19/2023 09:38:21 10/31/2023 MAMMO, diagnostic, digital, bilateral completed [address], [address], 11/01/2023 06:52:12 10/31/2023 US, breast, unilateral, limited completed [email or web address] [address], [address], 11/01/2023 06:51:03 03/11/2024 XR, lumbar spine, 2 view completed [email or web address] [address], [address], 03/12/2024 09:08:42 Procedure Notes None recorded. Medical Equipment None Reported. Allergies Allergen ID Allergen Name Allergen Category Reaction Reaction Severity Criticality Documentation Date Start Date Code Code System Note Provider Name and Address Organization Details Recorded Time 1900 Indocin medicatio n Not available Not available Not available 10/23/201775338 5 RxNorm [facility] 8 09:22:03 1901 Soma medicatio n Not available Not available Not available 10/23/201721040 [address] RxNorm [address] [facility] 8 09:22:07 1902 doxycycli ne Not available Not available Not available Not available 10/23/2017 3640 RxNorm [facility] 8 09:22:11 1903 pregabali n medicatio n Not available Not available Not available 10/23/2017 44729 2 RxNorm [facility] 8 09:22:20 Medications Name Sig Start Date [...] and Address Organization Details Last Updated DateTime 4 172.72 cm 40 kg/m2 162624. 79 g 91 /min 98 % 98 % 140 mm[Hg] 68 mm[Hg] Patience Rodriguez [facility] 4 16:10:50 Date Recorded Body height Body mass index (BMI) Body weight Heart rate Oxygen saturation Oxygen saturation in Arterial blood by Pulse oximetry Systolic blood pressure Diastolic blood pressure Provider Name and Address Organization Details Last Updated DateTime 5 172.72 cm 40 kg/m2 932424. 79 g 91 /min 98 % 98 % 124 mm[Hg] 78 mm[Hg] Patience Rodriguez [facility] 5 10:45:12 Date Recorded Body height Body mass index (BMI) Body weight Heart rate Oxygen saturation Oxygen saturation in Arterial blood by Pulse oximetry Systolic blood pressure Diastolic blood pressure Provider Name and Address Organization Details Last Updated DateTime 5 172.72 cm 41 kg/m2 515741. 86 g 88 /min 95 % 95 % 122 mm[Hg] 78 mm[Hg] Genesis Mcclelland [facility] 5 10:55:33 Social History Question Answer Notes LastModified by Organizat ion Details LastModified Time Tobacco Smoking Status Former Smoker Not Available [facility] 02/10/2020 03:36:24 What Is Your Level Of Alcohol Consumption? Occasional [id number] Information not available 02/10/2020 What Is Your Level Of Caffeine Consumption? Heavy 4 Cups Coffee Per Day [id number] Information not available 02/10/2020 What Was The Date Of Your Most Recent Tobacco Screening? 06/11/2024 [email or web address] Information not available 06/11/2024 Do You Or Have You Ever Used Any Other Forms Of Tobacco Or Nicotine? No Information not available 01/23/2022 Sex: Unknown Functional Status Question Answer Note LastModified by Organization D etails LastModified Time What is your exercise level? None [id number] Information not available 02/10/2020 Mental Status None recorded. Family History Nothing Reported. Medical History No medical history recorded. Gynecological HistoryNo gynecological history recorded. Obstetrics History GPAL:G 0 P 0 0 0 0 Immunizations Vaccine Type Date Status Note Provider Nam e and Address Organization Details Recorded Time zoster, unspecified formulation 1 completed Jj Keiht, DO [address] [place] [address], [address], [facility] 11/27/2020 17:46:12 Influenza, split virus, quadrivalent, preservative 1 completed Jj Keith, DO [address] [place] [address], [address], [facility] 11/27/2020 17:46:22 COVID-19, mRNA, LNP-S, PF, 30 mcg/0.3 mL dose 1 [facility] 12/22/2020 09:39:41 Tdap 1 [facility] 01/07/2021 08:20:47 zoster recombinant 1 [facility] 01/28/2021 13:57:41 COVID-19, mRNA, LNP-S, PF, 30 mcg/0.3 mL dose 1 completed Jj Keith DO [address] [place], [address], [facility] 03/10/2021 14:32:15 Influenza, split virus, quadrivalent, preservative 8 completed Jj Keith, [address] [place], [address], [facility] 01/12/2018 15:24:16 COVID-19, mRNA, LNP-S, PF, 30 mcg/0.3 mL dose 2 completed [facility] 08/05/2021 08:33:30 Influenza, split virus, quadrivalent, preservative 2 completed [facility] 01/17/2022 08:26:21 Tdap 8 completed Not Available [facility] 05/10/2019 02:14:52 zoster live 8 [facility] 12/18/2018 11:18:50 zoster live 8 completed [facility] 12/18/2018 11:18:59 Influenza, split virus, quadrivalent, preservative 0 completed [facility] 01/06/2020 13:41:20 Tdap 0 [facility] 01/06/2020 13:41:32 COVID-19, mRNA, LNP-S, PF, 30 mcg/0.3 mL dose 1 completed Jj Keith DO [address] [place] [address], [address], [facility] 07/31/2020 19:33:42 Past Encounters Encounter ID Performer Location Encounter Start Date Encounter Closed Date Diagnosis/Indication Diagnosis SNOMED-CT Code Diagnosis ICD10 Code Diagnosis Note [id number] Jj Keith DO [facility] [address] [facility],[place] [address] 10/23/2017 12:18:56 10/23/2017 15:14:53 Occipital headache 812414 R51 given chiari malformati on we emily order an mri to eval poss etiology Hypercholesterolemia 136 61494 E78.00 has cut pill in 1/2 and taking without issue Dermatofib elvin of left lower limb 2194312776 932280 D23.72 reassuranc e no suspicious findings Chiari malformation 2531 57026 Q07.00 MRI for f/u Impaired f asting glycemia 643044725 R73.01 [id number] Jj Keith [facility] [address] [facility], [place] [address] 11/09/2017 15:36:42 11/09/2017 16:38:29 Occipital headache 944797 R51 mri stable with stable chiari findings will try to treat with migraine med Chiari malformation 2531 01610 Q07.00 MRI for f/u was wnl doing well at this point Impaired f asting glycemia 169360466 R73.01 a1c is 5.8 perfect d no further tx needed at this time Hypercholesterolemia 136 92626 E78.00 has cut pill in 1/2 and taking without issue and LDL is down to 95 excelllent [id number] Jj Keith [facility] [address] [facility], [place] [address] 02/12/2018 12:01:19 02/12/2018 13:39:26 Adult health examination 312313004 Z00.01 will need to reschedule Allergic reaction 592081 005 T78.40XA having recurrent urticarial type reactions weekly for the last several months unable to determine etiology [id number] Jj Keith [facility] [address] [facility], [place] [address] 04/10/2018 13:19:11 04/10/2018 14:23:25 Costal chondritis 16726220 M94.0 ongoing atypical chest pain in episodes i am unsure of what this last episode was and why she could not use her hands and then all disappeare d several hours later Chiari malformation 2531 80390 Q07.00 MRI for f/u was wnl doing well at this point 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 [place] [address] 12/18/2018 11:14:50 12/18/2018 12:03:37 Seborrheic dermatitis of scalp 186633442 L21.0 Pain of left heel 414501 2572 718916 M79.672 [id number] Jj Keith [facility] [address] [facility], [place] [address] 01/07/2019 13:43:39 01/07/2019 14:14:02 Degeneration of intervertebral disc 74134419 M51.9 still the same unchanged and still impedes her from ADLs Osteoarthritis 560227550 M19.[address] helen carmona Hypercholesterolemia 136 04706 E78.00 LDL is still excellent at 92 [place] type 2 without hydrocephalus 4753123596 9108 Q07.00 has been many years since last eval 2010 found will need update as recc by neurod [id number] HILTON VILLALOBOS [facility] [address] [facility],[place] [address] 06/03/2019 10:51:14 06/03/2019 12:26:18 Influenza 4009436 J10.89 pt is suffering from extreme fatigue, body aches, sore throat, congestion exposed to niece who was diagnosed with the flu [id number] Jj Keith [facility] [address] [facility] [place],[place] [address] 06/16/2019 10:45:37 06/16/2019 11:19:23 Dyspnea on exertion 13041092 R06.09 believe she needs due to hx of smoking Chest pain on exertion 86685501 R07.89 unable to walk on ETT due to deg disc lumbar spine [id number] HILTON VILLALOBOS [facility] [address] [facility], [place] [address] 09/05/2019 13:44:19 09/05/2019 15:45:00 Costal chondritis 30232454 M94.0 patient has prednisone 5 mg tablets, has 65 tabs in the bottle from her doctor will have her take 15 mg for two weeks and baclofen for two weeks and f/u with me to see how she is doing will have her f/u next week to see how [place] s [id number] Jj Keith DO [facility] [address] [facility],[place] [address] 12/01/2019 14:14:08 12/01/2019 15:34:55 Emphysematous bronchitis 781585159 J44.9 will try Breo inhaler 100mcg and we will see in 6 weeks given the PFT showed some emphysema Chiari malformation 2531 75645 Q07.00 MRI for f/u was wnl doing well at this point Hypercholesterolemia 136 58118 E78.00 LDL is still excellent at 92 last test will have to rechk Rheumatoid arthritis 698 85739 M06.9 followed per rheumatolo gist [id number] Jj Keith DO [facility] [address] [facility],[place] [address] 02/09/2020 14:55:47 02/09/2020 15:57:26 Renewal of prescription 352993342 Z76.0 Impaired f asting glycemia 347360491 R73.01 a1c is needed at this time Dyspnea on exertion 6084 5006 R06.09 this could be either a copd type or even cardiac we will wait for the ct scan of chest and if negative we will pursue and do a cardiac scan also , could the use of interferon years ago be causing problems now? Degenerati on of intervertebral disc 10814022 M51.9 still the same unchanged and still impedes her from ADLs [id number] Jj Keith DO [facility] [address] [facility],[place] [address] 05/07/2020 08:25:57 05/07/2020 15:15:05 Adult health examination 739024195 Z00.01 will need to reschedule due to covid Dyspnea on exertion 6084 5006 R06.09 given the amount of work up i have done i still cannot come up with any specific etiology other than obesity and deconditio ashlee we are going to get the opinion of a pulmonolog ist per pt request Degenerati on of intervertebral disc 15459336 M51.9 still the same unchanged and still impedes her from ADLs Hypercholesterolemia 136 96509 E78.00 LDL is still excellent at 92 last test will have to rechk Impaired f asting glycemia 324279675 R73.01 a1c is needed at this time Rheumatoid arthritis 698 45484 M06.9 followed per rheumatolo gist Renewal of prescription 929368067 Z76.0 [id number] Jj Keith DO [facility] [address] [facility],[place] [address] 09/20/2020 11:25:59 09/20/2020 15:18:07 Pulmonary emphysema 12566296 J43.9 she is now on anoro Chiari malformation 2531 46305 Q07.00 MRI for f/u was wnl doing well at this point Lump in up per outer quadrant of right breast 7974002211 46006 N63.11 we will need to eval this area best is with a mammogram [id number] Jj Keith DO [facility] [address] [facility],[place] [address] 09/28/2020 16:13:48 09/28/2020 17:54:07 Pulmonary emphysema 87954897 J43.9 she is now on anoro Impaired f asting glycemia 663929843 R73.01 a1c is 6.0 so we will keep an eyeon this [id number] Jj Keith DO [facility] [address] [facility] [place] [address] 12/28/2020 08:29:36 12/28/2020 16:20:30 Rheumatoid arthritis 08770565 M06.9 followed per rheumatelena cory is asking for medication for breakthrou gh pain even though she is getting 150mcg of [id number] will discuss this with marissa at [facility] ortho(?) Impaired f asting glycemia 965264540 R73.01 a1c is 6.0 last spring she needs to get lab for a1c so we will keep an eye on this Pulmonary emphysema 8743 3001 J43.9 she is now on anoro follows dr Blackman [id number] Jj Keith [facility] [address] [facility] [place] [address] 03/25/2021 08:36:43 03/25/2021 15:16:45 Pulmonary emphysema 61588310 J43.9 she is now on anoro follows dr Blackman but im wondering if that is what is causing her sob and her wgt gain of total 260lbs has caused a lot of issue Costal chondritis 274355 04 M94.0 ongoing atypical chest pain in episodes i am unsure of what this last episode was and why she could not use her hands and then all disappeare d several hours later [id number] HILTON VILLALOBOS [facility] [address] [facility] [place] [address] 04/15/2021 09:04:16 04/15/2021 15:16:01 Rheumatoid arthritis 68555427 M06.89 stable Chiari malformation 2531 00682 Q07.00 stable Pulmonary emphysema 8743 3001 J43.8 send report to pulmonolog y with fu scheduled this month [id number] Jj Keith [facility] [address] [facility] [place] [address] 07/08/2021 11:55:41 07/08/2021 16:27:31 Body mass index 40+ - severely obese 824924448 Z68.42 [id number] Jj Keith [facility] [address] [facility] [place] [address] 01/23/2022 11:43:12 01/23/2022 12:31:19 Hypercholesterolemia 20669513 E78.00 LDL is still excellent at 92 last test will have to rechk Impaired f asting glycemia 339007723 R73.01 a1c is 6.0 last spring she needs to get lab for a1c so we will keep an eye on this Screening for malignant neoplasm of colon 220852109 Z12.11 Degenerati on of intervertebral disc 58618732 M51.9 still the same unchanged and still impedes her from ADLs Adult heal th examination 544876344 Z00.01 will need to reschedule due to covid [id number] HILTON IVLLALOBOS [facility] [address] [facility] [address] 02/21/2022 13:57:55 02/21/2022 17:12:29 Impetigo 98236528 L01.01 will start on bactrim for the next 7 days Seborrheic dermatitis of scalp 377849302 L21.0 will start on clobetasol scalp solution [id number] HILTON VILLALOBOS [facility] [address] [facility] [address],[place] [address] 05/26/2022 10:13:43 05/26/2022 13:55:11 Right flank pain 749196665 R10.0 set up with KUB, thoracic, and chestddx is kidney stone, pneumonia, or thoracic radiculopa thy Dyspnea 668413436 R06.02 will set up with CXR Thoracic back pain 14156 8004 M54.6 will set up with thoracic XR [id number] HILTON VILLALOBOS [facility] [address] [facility],[place] [address] 01/26/2023 09:10:07 01/26/2023 12:09:47 Body mass index 40+ - severely obese 910520480 Z68.42 unintentio nal weight loss (22 pounds) could be grief Rheumatoid arthritis 698 30737 M06.89 stable Chiari malformation 2531 63233 Q07.00 stable Pulmonary emphysema 8743 3001 J43.8 agreed to f/u after her symptoms improve for the sob and weight loss Acute exac erbation of chronic obstructive pulmonary disease 519984449 J44.1 start pred and z rené [id number] HILTON VILLALOBOS [facility] [address] [place] [address] 03/21/2023 10:24:54 03/21/2023 11:00:54 Degeneration of lumbar intervertebral disc 96261663 M51.36 needs refill Anxiety 26942692 F41.9 needs refill Asthma 113257256 J45.40 stable Pulmonary emphysema 8743 3001 J43.8 agreed to f/u after her symptoms improve for the sob and weight loss Hemorrhoids 34179850 K64 .1 will set up with Dr. 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11 Screening for osteoporosis 230782019 Z13.820 Screening mammography 24 567783 Z12.31 Ground glass opacity 647 8665515 R91.8 [id number] Jj Keith DO [facility] [address] [facility] [place] [address] 10/10/2023 11:32:32 10/10/2023 12:11:19 Depression screening 265433955 Z13.31 neg Pain of ri ght knee joint 8347893977 66056 M25.561 Dyspnea on exertion 6084 5006 R06.09 given the amount of work up i have done i still cannot come up with any specific etiology other than obesity and deconditio ashlee we are going to get the opinion of a pulmonolog ist per pt request Sleep apnea 74745014 G47 .30 [id number] Jj Keith [facility] [address] [facility],[place] [address] 10/29/2023 14:10:23 10/29/2023 14:36:08 Pain of right knee joint 2940853758 55427 M25.561 jessica well jayden [id number] Jj Keith [facility] [address] [facility],[place] [address] 11/09/2023 13:26:04 11/09/2023 15:03:42 Osteoarthritis of left knee joint 3972190314 46354 M17.12 jessica inj well jayden [id number] Jj Keith [facility] [address] [facility],[place] [address] 03/04/2024 09:03:27 03/04/2024 16:48:31 Impaired fasting glycemia 697271383 R73.01 a1c is 6.0 last spring she needs to get lab for a1c so we will keep an eye on this Weakness o f right lower limb 8649790803 92288 M62.81 [id number] Jj Keith [facility] [address] [facility],[place] [address] 04/11/2024 10:34:28 04/11/2024 11:23:11 Asthma 625177407 J45.909 has been stable Type 2 tim betes mellitus 47784621 E11.9 new onset of dm long discussion and need for weight loss told her she needs to change the way she is eating Central al veolar hypoventilation syndrome 82611945 G47.39 noted obesity hypovent syndrome a bedtime O2 sats drop to 70's Degenerati on of lumbar intervertebral disc 46657355 M51.369 [id number] Jj Keith DO [facility] [address] [facility] [address],[place] [address] 06/11/2024 10:40:55 06/11/2024 12:13:26 Asthma 594609861 J45.909 has been stable Type 2 tim betes mellitus 86209505 E11.9 new onset of dm long discussion and need for weight loss told her she needs to change the way she is eatingwe are going to get her a Glp 1 inj Central al veolar hypoventilation syndrome 29607781 G47.39 noted obesity hypovent syndrome a bedtime O2 sats drop to 70's Degenerati on of lumbar intervertebral disc 64889179 M51.369 going for caudal epidural Depression screening 171 600241 Z13.31 neg Chronic ob structive pulmonary disease 90649777 J44.9 awaiting pft final report expect status to have worsened Bilateral hip joint pain 9571065086 0596756 M25.551 noted and her wgt is the primary culprit Rheumatoid arthritis 698 12569 M06.89 followed per rheumatolo cory is asking for medication for breakthrou gh pain even though she is getting 150mcg of zbrnpdqg0g will discuss this with marissa at [facility] ortho(?) Health Concerns Section Related Observation LastModified by Organization Detai ls LastModified Time None Recorded Concern Status LastModified by Organization Details LastModified Time None Recorded Advance Directives Directive None Recorded Payers Encounter Date Sequence Insurance Name Policy Number Policy Bruce Covered Member ID Bruce Member ID Guarantor Name 10/29/2023 2 [place] Amberly Glasgow [id number] Amberly Glasgow 10/29/2023 1 [employer] (MEDICARE REPLACEMENT PPO) [id number] Amberly Glasgow [id number] Amberly Glasgow 11/09/2023 2 [place] Amberly Glasgow [id number] Amberly Glasgow 11/09/2023 1 [employer] (MEDICARE REPLACEMENT PPO) [id number] Amberly Glasgow [id number] Amberly Glasgow 03/04/2024 2 [place] [facility] Amberly Glasgow [id number] Amberly Glasgow 03/04/2024 1 [employer] (MEDICARE REPLACEMENT PPO) [id number] Amberly Lizbeth Glasgow [id number] Amberly Glasgow 04/11/2024 2 [place] [facility] Amberly Glasgow [id number] Amberly Glasgow 04/11/2024 1 [facility] (MEDICARE REPLACEMENT/AD VANTAGE - HMO) Amberly Glasgow [id number] Amberly Glasgow 06/11/2024 2 [place] [facility] Amberly Glasgow [id number] Amberly Glasgow 06/11/2024 1 [facility] (MEDICARE REPLACEMENT/AD VANTAGE - HMO) Amberly Glasgow [id number] Amberly Glasgow Notes Date Note Type Note Provider Name a oh Address Organization Details Recorded Time 4 text/html pt here for jessica inj has been having a hard time walking although last injection helped quite a bit for many months would like her right knee done today and would like her left done soon Jj Keith DO [address] [place] [address], [phone], [facility] 10/29/2023 15:30:51 4 text/html here for her jessica injdoing worse with left knee but right knee is feeling much better Jj Keith DO [address] [place], [address], [facility] 11/09/2023 15:52:24 4 text/html here for rechk and had lab done by dr yepez was told that her kidneys are inflamed and her liver is irritated also she had a sleep test done showing sleep apnea Jj Keith DO [address] [place], [address], [facility] 03/04/2024 16:47:54 5 text/html Care Management - DiabetesReported bypatient.Self Care:seeing eye doctor yearly for dilated eye exam; checking feet regularly; normal range of home blood sugars (in the low 100s); no side effects from medications Associated Symptoms:no dizziness; no excessive sweating; no headaches; no confusion; no increased thirst; no increased appetite; no increased urination; no blurred vision; no calluses on feet;symptoms are usually poorly controlled;fatigue;nu mbness of feet here for rechk and is doing ok but is here for eval of newly dx dm as her last a1c is 6.8 discussed need for wgt loss and need to eat betterdiscussed her recent sleep study showed no apnea but revealed evid of hypoventilation synd with low oxim of 76% Jj Keith DO [address] [place] [address], [phone], [facility] 04/11/2024 11:20:24 5 text/html Care Management - DiabetesReported bypatient.Prognosis:e xpected outcome: stabilize; prognosis: guarded Self Care:hemoglobin A1C goal: <7.5; hemoglobin A1C levels have been: 7-8 underwent resp eval oxim went down 92% but pt saw 90 this was after she was walking for 5 min relates is still having exertional dyspneausing the trelegy daily and always using the albuterol Jj Keith DO [address] [facility], [place], [address], [facility] 06/11/2024 11:24:57 OBGyn Episode No OBEpisode recorded.
== END 2024-06-11 11:37 | disposition home or self-care (01) ==
LOC: HO.MANLDS 11:36
PROVIDERS: Visit Provider Internal Medicine
DX: E11.9 Type 2 diabetes mellitus without complications (principal)
CPT/HCPCS: 36415; 83036

== ENCOUNTER 2025-03-11 09:39 | Outpatient (REF) | payer MEDICARE, MEDICAID, SELFPAY ==
[2025-03-11 13:40] LABS: MANUAL DIFF FLAG NO
[2025-03-11 14:10] LABS: Hematocrit 44.1 % (37.0-47.0); Hemoglobin 14.1 g/dl (12.0-16.0); Imm Gran Abs Auto 0.04 X10*3/uL (0.00-0.03); Imm Gran Pct Auto 0.5 % (0.0-0.4); Lymphocytes Absolute Auto 1.8 X10*3/uL (1.2-4.9); Mean Corpuscular HGB Conc 32.0 g/dl (31.0-35.0); Mean Corpuscular Hemoglobin 30.3 pg (27.0-33.0); Mean Corpuscular Volume 94.6 fL (80.0-98.0); NRBC Abs Auto 0.000 X10*3/uL (0.0-0.012); NRBC Pct Auto 0.0 /100WBC (0.0-0.2); Platelet Count 284 X10*3/uL (160-400); Red Blood Count 4.66 X10*6/uL (4.20-5.50); White Blood Count 8.5 X10*3/uL (4.8-10.8)
[2025-03-11 14:20] LABS: Hemoglobin A1C 93.9508 umol/L
[2025-03-11 14:38] LABS: Alanine Aminotransferase 27 U/L (0-31); Albumin Level 4.4 g/dL (3.5-5.0); Alkaline Phosphatase 107 U/L (39-117); Anion Gap 12 (12-20); Aspartate Amino Transferase 26 U/L (5-31); Blood Urea Nitrogen 15 mg/dL (9-16); Calcium 9.2 mg/dL (8.4-10.2); Carbon Dioxide 21 mmol/L (22-29); Chloride 111 mmol/L (96-108); Cholesterol 184 mg/dL (<200); Estimated Glomerular Filt Rate 59; HDL Cholesterol 52 mg/dL (>40); Potassium 4.1 mmol/L (3.3-5.1); Sodium 140 mmol/L (135-145); Total Protein 7.5 g/dL (6.5-8.0); Triglycerides 119 mg/dL (<150)
== END 2025-03-11 09:40 | disposition home or self-care (01) ==
LOC: HO.MANLDS 09:39
PROVIDERS: Visit Provider Internal Medicine
DX: Z00.00 Encounter for general adult medical examination without abnormal findings (principal); Z13.6 Encounter for screening for cardiovascular disorders; Z12.11 Encounter for screening for malignant neoplasm of colon; E11.9 Type 2 diabetes mellitus without complications; M06.89 Other specified rheumatoid arthritis, multiple sites
CPT/HCPCS: 36415; 80053; 80061; 83036; 85025; 85652; 86140